=== PATIENT | female | born 1990 | race Caucasian/White ===

== ENCOUNTER 2017-05-10 18:00 | Outpatient (CLI) | payer BC | END 2017-05-10 20:25 | disposition home or self-care (01) | LOC: BC 18:00 → 2LDRP 18:00 → BC 20:25 | DX: O99.89 Other specified diseases and conditions complicating pregnancy, childbirth and the puerperium (principal); R10.9 Unspecified abdominal pain; Z3A.31 31 weeks gestation of pregnancy ==